=== PATIENT | female | born 1985 | race Caucasian/White ===

== ENCOUNTER 2023-01-24 11:26 | Outpatient (CLI) | payer OTHER, SELFPAY | END 2023-01-24 11:27 | disposition home or self-care (01) | PROVIDERS: PCP Internal Medicine; Visit Provider Obstetrics & Gynecology | DX: N91.2 Amenorrhea, unspecified (principal); N89.8 Other specified noninflammatory disorders of vagina | CPT/HCPCS: 83001; 84443; 87086 ==

== ENCOUNTER 2023-02-05 14:04 | Outpatient (CLI) | payer OTHER, SELFPAY ==
[2023-02-08] LABS: Bacterial Vaginosis by TMA Negative; Candida glabrata by TMA Negative; Candida species by TMA Negative; Trichomonas vaginalis by TMA Negative
== END 2023-02-05 14:05 | disposition home or self-care (01) ==
PROVIDERS: PCP Internal Medicine; Visit Provider Registered Nurse
DX: N89.8 Other specified noninflammatory disorders of vagina (principal)
CPT/HCPCS: 81513; 87109; 87481; 87491; 87591; 87661

== ENCOUNTER 2023-03-05 14:48 | Outpatient (CLI) | payer OTHER, SELFPAY ==
--- NOTE | 2023-03-05 15:00 | CRLHL7_ITS ---
For Patients: As a result of the Century Cures Act, medical imaging exams and procedure reports are released immediately into your electronic medical record. You may view this report before your referring provider. If you have questions, please contact your health care provider. INDICATION: Inflammation COMPARISON: 06/01/2021 TECHNIQUE: 2D padron scale and color Doppler images were acquired of the pelvis using a transabdominal and transvaginal approach. FINDINGS: Sonographic images demonstrate a normal size and smooth outer contour of the uterus. Uterus measures 6.7 cm in length by 3.0 cm in AP diameter by 4.3 cm in transverse dimension. The myometrium has a normal uniform echotexture. Intrauterine device is located within the endometrial canal in good position. The right ovary measures 2.3 x 1.0 x 2.3 cm in size and the left ovary measures 3.0 x 1.2 x 1.8 cm. The ovaries demonstrate normal arterial and venous blood flow on color Doppler analysis. There are no suspicious fluid collections within the cul-de-sac. IMPRESSION: Good position of the IUD. No uterine fibroid. No adnexal mass. Ovaries normal. Dictated by Josias Richards MD @ 03/05/2023 3:43:56 PM (Electronically Signed)
== END 2023-03-05 14:49 | disposition home or self-care (01) ==
LOC: US 14:48
PROVIDERS: PCP Internal Medicine; Visit Provider Registered Nurse
DX: N89.8 Other specified noninflammatory disorders of vagina (principal)
CPT/HCPCS: 76830; 76856

== ENCOUNTER 2023-04-09 14:30 | Outpatient (RCR) | payer OTHER, SELFPAY | END 2023-06-27 14:35 | disposition home or self-care (01) | PROVIDERS: PCP Internal Medicine; Visit Provider Family Medicine | DX: M54.50 Low back pain, unspecified (principal); M79.18 Myalgia, other site; G89.29 Other chronic pain; Z51.89 Encounter for other specified aftercare | CPT/HCPCS: 97110; 97161 ==

== ENCOUNTER 2023-04-25 13:53 | Outpatient (CLI) | payer OTHER, SELFPAY | END 2023-04-25 13:54 | disposition home or self-care (01) | PROVIDERS: PCP Family Medicine; Visit Provider Family Medicine | DX: R53.83 Other fatigue (principal); K52.9 Noninfective gastroenteritis and colitis, unspecified; R19.7 Diarrhea, unspecified | CPT/HCPCS: 80053; 83516; 84443 ==

== ENCOUNTER 2023-06-25 14:42 | Outpatient (CLI) | payer OTHER, SELFPAY | END 2023-06-25 14:43 | disposition home or self-care (01) | PROVIDERS: PCP Family Medicine; Visit Provider Registered Nurse | DX: N91.1 Secondary amenorrhea (principal) | CPT/HCPCS: 82670; 83001; 84146; 84443 ==

== ENCOUNTER 2023-07-08 08:10 | Outpatient (CLI) | payer OTHER, SELFPAY ==
--- OUTSIDE RECORDS SUMMARY | 2023-07-10 14:47 | XMS_ITS | Patient Health Record ---
Author Name Unknown Organization [facility] Address [address] [place] [phone] Care Team Providers Care Canine Service Teacher Name Role Phone Nikole Alvares Primary Care Provider ALLERGIES No Known Allergies RESULTS Component Value Reference Range Notes Thyroid Antibodies Reviewed date:07/10/2023 01:13:08 PM Interpretation:Normal Performing Lab:[facility], [facility], [address], [place], [address] Jose Davila Notes/Report: THYROGLOBULIN ANTIBODIES <1 < or = 1 IU/mL THYROID PEROXIDASE ANTIBODIES 4 <9 IU/mL T3, FREE Reviewed date:07/10/2023 07:14:49 AM Interpretation: Performing Lab:[facility], [facility], [address], [place], [address] Jose Davila Notes/Report: T3, FREE 3.5 2.3-4.2 pg/mL CRP C-REACTIVE PROTEIN Reviewed date:07/10/2023 01:12:06 PM Interpretation:4.8 Performing Lab:[facility], [facility], [address], [place], [address] Jose Davila Notes/Report: C-REACTIVE PROTEIN 4.8 <8.0 mg/L SED RATE BY MODIFIED DARYL PEREZ Reviewed date:07/10/2023 01:11:47 PM Interpretation:17 Performing Lab:[facility], [facility], [address], [place], [address] Jose Davila Notes/Report: SED RATE BY MODIFIED WESTERGREN 17 < OR = 20 mm/h T4, FREE Reviewed date:07/10/2023 07:17:43 AM Interpretation: Performing Lab:[facility], [facility], [address] [place] [address], [phone] Jose Davila Notes/Report: T4, FREE 1.1 0.8-1.8 ng/dL IMMUNOGLOBULINS Reviewed date:07/10/2023 01:12:31 PM Interpretation:Normal Performing Lab:[facility], [address] [place] [address], [place], [address] Jose Davila Notes/Report: IMMUNOGLOBULIN A 288 47-310 mg/dL IMMUNOGLOBULIN G 6240 868-4374 mg/dL IMMUNOGLOBULIN M 121 50-300 mg/dL VITAMIN D, 25-HYDROXY, LC/MS /MS(non-covered need waiver signed) Reviewed date:07/10/2023 01:12:49 PM Interpretation:67 Performing Lab:[facility], [address] [place] [address], [phone] Jose Davila Notes/Report: VITAMIN D,25-OH,TOTAL,IA 67 30-100 ng/mL Vitamin D Status 25-OH Vitamin D: Deficiency: <20 ng/mL Insufficiency: 20 - 29 ng/mL Optimal: > or = 30 ng/mL For 25-OH Vitamin D testing on patients on D2-supplementation and patients for whom quantitation of D2 and D3 fractions is required, the QuestAssureD(TM) 25-OH VIT D, (D2,D3), LC/MS/MS is recommended: order code 40018 (patients >2yrs). See Note 1 Note 1 For additional information, please refer to http://education.Cloud Takeoff.[employer]/faq/RJJ294 (This link is being provided for informational/ educational purposes only.) ANJANA Screen,IFA, with Reflex to Titer and Pattern Reviewed date:07/09/2023 11:29:52 AM Interpretation: Performing Lab:[facility], [facility], [facility], [place], [address] Jose Davila Notes/Report: ANJANA SCREEN, IFA NEGATIVE NEGATIVE ANJANA IFA is a first line screen for detecting the presence of up to approximately 150 autoantibodies in various autoimmune diseases. A negative ANJANA IFA result suggests an ANJANA-associated autoimmune disease is not present at this time, but is not definitive. If there is high clinical suspicion for Sjogren's syndrome, testing for anti-SS-A/Ro antibody should be considered. Anti-Mandi-1 antibody should be considered for clinically suspected inflammatory myopathies. AC-0: Negative International Consensus on ANJANA Patterns (https://doi.org/10.1515/cclm -1703-2785) For additional information, please refer to http://education.Magic Rock Entertainment/faq/UEM296 (This link is being provided for informational/ educational purposes only.) REASON FOR REFERRAL No Information MEDICATIONS Medication SIG (Take, Route, Frequency, Duration) Notes Start Date End Date Status Sertraline HCl 50 MG 1 tablet Orally Onc e a day Active Vitamin D 50 MCG (1999 UT) 1 tablet Oral ly Once a day 4000IU Active Clindamycin Phosphate 2 % as directed Vaginal Active SOCIAL HISTORY Tobacco Use: Social History Observation Description Date Details (start date - stop date) Never Smoker NA - NA Sex Assigned At : Social History Observation Description Sex Assigned At Unknown Smoking Question Answer Notes Status: Non-Smoker PROBLEMS Problem Type ICD Code Onset Dates Problem Status W/U Status Risk SNOMED Code Notes Problem Chronic vaginitis (N76.1) Active confirmed 04776008 VITAL SIGNS Heart Rate 52 /min 07/07/2023 Temperature 97.5 degrees Fahrenheit 07/07/2023 Respiratory Rate 14 /min 07/07/2023 Blood pressure diastolic 78 mm Hg 07/07/2023 Height 68 in 07/07/2023 Blood pressure systolic 106 mm Hg 07/07/2023 Weight 167.0 lbs 07/07/2023 BMI 25.39 kg/m2 07/07/2023 Encounters Encounter Location Date Provider Diagnosis [facility] [address] [place], [place] [id number] 05/14/2023 [facility] [address] [place], [place] [phone] 07/07/2023 Nikole Khan, [facility] [address] [place], [place] [phone] 07/07/2023 Nikole Alvares Elevated prolactin level R79.89 ; Recurrent URI (upper respiratory infection) J06.9 and Chronic vaginitis N76.1 ASSESSMENTS Encounter Date Diagnosis Assessment Notes Treatment Notes Treatment Clinical Notes 07/07/2023 Recurrent URI (upper respiratory infection) (ICD-10 - J06.9) 07/07/2023 Elevated prolactin level (ICD-10 - R79.89) Total time spent caring for the patient today was 45 minutes. This includes time spent before the visit reviewing the chart, time spent during the visit, and time spent after the visit on documentation. 07/07/2023 Chronic vaginitis (ICD-10 - N76.1) Probiotic 20 (Ultrabiotic by Orthomolecular) 1 by mouth daily. Probiotic Women's (Ultra Biotic Women's by Orthomolecular) 1 by mouth daily, and you can add 1 vaginally during times of vaginal symptoms. You can order supplements to be delivered to your home with a 10% discount through our account at the following website: [email or web address] PLAN OF TREATMENT No Information Insurance Providers Payer Name Payer Address Payer Phone Subscriber Number Group Number Insured Name Patient Relationship to Insured Coverage Start Date Coverage End Date PreferredOn e - PPO [address] [place] [phone] [id number] Daniela Lowery Self - patient is the insured MEDICAL (GENERAL) HISTORY Medical History History ICD Code Desquamative Inflammatory Vaginitis Back Pain Blepharitis Elevated Prolactin Amenorrhea
== END 2023-07-08 08:11 | disposition home or self-care (01) ==
LOC: NFLDREF 07-10 14:45
PROVIDERS: PCP Family Medicine; Referring Provider Family Medicine; Visit Provider Family Medicine
DX: N91.1 Secondary amenorrhea (principal)
CPT/HCPCS: 84146

== ENCOUNTER 2023-07-23 12:47 | Outpatient (CLI) | payer OTHER, SELFPAY ==
--- OUTSIDE RECORDS SUMMARY | 2023-07-23 12:50 | XMS_ITS | Patient Health Record ---
Author Name Unknown Organization [facility] Address [address] [place] [phone] Care Team Providers Care Ore Sampler Name Role Phone Nikole Alvares Primary Care Provider [phone] ALLERGIES No Known Allergies RESULTS Component Value Reference Range Notes Thyroid Antibodies Reviewed date:07/10/2023 01:13:08 PM Interpretation:Normal Performing Lab:[facility], [facility], [address], [place], [address] Jose Davila Notes/Report: THYROGLOBULIN ANTIBODIES <1 < or = 1 IU/mL THYROID PEROXIDASE ANTIBODIES 4 <9 IU/mL T3, FREE Reviewed date:07/10/2023 07:14:49 AM Interpretation: Performing Lab:[facility], [facility], [address], [place], [address] Jose Davila Notes/Report: T3, FREE 3.5 2.3-4.2 pg/mL CRP C-REACTIVE PROTEIN Reviewed date:07/10/2023 01:12:06 PM Interpretation:4.8 Performing Lab:[facility], [facility], [address], [place], [address] Jose Davila Notes/Report: C-REACTIVE PROTEIN 4.8 <8.0 mg/L SED RATE BY MODIFIED DARYL PEREZ Reviewed date:07/10/2023 01:11:47 PM Interpretation:17 Performing Lab:[facility], [facility], [address], [place], [address] Jose Davila Notes/Report: SED RATE BY MODIFIED WESTERGREN 17 < OR = 20 mm/h T4, FREE Reviewed date:07/10/2023 07:17:43 AM Interpretation: Performing Lab:[facility], [facility] [place], [address] [place] [address], [address] Jose Davila Notes/Report: T4, FREE 1.1 0.8-1.8 ng/dL IMMUNOGLOBULINS Reviewed date:07/10/2023 01:12:31 PM Interpretation:Normal Performing Lab:[facility], [facility], [address] [place] [address], [place], [address] Jose Davila Notes/Report: IMMUNOGLOBULIN A 288 47-310 mg/dL IMMUNOGLOBULIN G 4782 362-3618 mg/dL IMMUNOGLOBULIN M 121 50-300 mg/dL VITAMIN D, 25-HYDROXY, LC/MS /MS(non-covered need waiver signed) Reviewed date:07/10/2023 01:12:49 PM Interpretation:67 Performing Lab:[facility], [address] [place] [address], [phone] Jose Davila Notes/Report: VITAMIN D,25-OH,TOTAL,IA 67 30-100 ng/mL Vitamin D Status 25-OH Vitamin D: Deficiency: <20 ng/mL Insufficiency: 20 - 29 ng/mL Optimal: > or = 30 ng/mL For 25-OH Vitamin D testing on patients on D2-supplementation and patients for whom quantitation of D2 and D3 fractions is required, the QuestAssureD(TM) 25-OH VIT D, (D2,D3), LC/MS/MS is recommended: order code 03930 (patients >2yrs). See Note 1 Note 1 For additional information, please refer to http://education.Rakuten.anywayanyday/faq/GWS107 (This link is being provided for informational/ educational purposes only.) ANJANA Screen,IFA, with Reflex to Titer and Pattern Reviewed date:07/09/2023 11:29:52 AM Interpretation: Performing Lab:[facility], [facility], [facility], [place], [address] Jose Davila Notes/Report: ANJANA SCREEN, IFA NEGATIVE [...] Negative International Consensus on ANJANA Patterns (https://doi.org/10.1515/cclm -8285-1954) For additional information, please refer to http://education.ExtraFootie/faq/EXS194 (This link is being provided for informational/ [...] Notes Problem Chronic vaginitis (N76.1) Active confirmed [id number] VITAL SIGNS Heart Rate 52 /min 07/07/2023 Temperature 97.5 degrees Fahrenheit 07/07/2023 Respiratory Rate 14 /min 07/07/2023 Blood pressure diastolic 78 mm Hg 07/07/2023 Height 68 in 07/07/2023 Blood pressure systolic 106 mm Hg 07/07/2023 Weight 167.0 lbs 07/07/2023 BMI 25.39 kg/m2 07/07/2023 Encounters Encounter Location Date Provider Diagnosis [facility] [address] [place], [place] [phone] 05/14/2023 [facility] [address] [place], [place] [id number] 07/07/2023 Nikole Khan, [facility] [address] [place], [place] [phone] 07/07/2023 Nikole Alvares Elevated prolactin level R79.89 [...] through our account at the following website: [email or web address] PLAN OF TREATMENT No Information Insurance Providers Payer Name Payer Address Payer Phone Subscriber Number Group Number Insured Name Patient Relationship to Insured Coverage Start Date Coverage End Date PreferredOn e - PPO [address] [place] [phone] [id number] Daniela Lowery Self - patient is the insured MEDICAL (GENERAL) HISTORY Medical History History ICD Code Desquamative Inflammatory Vaginitis Back Pain Blepharitis Elevated Prolactin Amenorrhea
--- NOTE | 2023-07-23 13:00 | CRLHL7_ITS ---
For Patients: As a result of the Cures Act, medical imaging exams and procedure reports are released immediately into your electronic medical record. You may view this report before your referring provider. If you have questions, please contact your health care provider. INDICATION: Elevated prolactin. Comparison none. TECHNIQUE: Multiplanar T1, T2, FLAIR and diffusion-weighted imaging. Post gadolinium T1 weighted sequences. Additional pre and post and sequences of the sella. FINDINGS: Normal brain parenchymal morphology and signal intensity. No intracranial hemorrhage. No abnormal ventricular dilatation. Intracranial vascular flow voids are preserved. No mass effect. No midline shift. No restricted diffusion to suggest acute ischemia. No abnormal enhancement or enhancing lesions. Incidental tiny developmental venous anomaly of the right cerebellum. Dedicated sequences of the sella demonstrates a hypo enhancing nodule within the central and right aspect of the pituitary gland measuring approximately 7 x 5 mm (series 9, image 10). Finding is consistent with a pituitary adenoma. No suprasellar mass. Normal thickness of the infundibulum. Normal cavernous sinuses bilaterally. Bilateral orbits are unremarkable. Mild mucosal thickening within the paranasal sinuses. Opacification of the ethmoid air cells. Mastoid air cells are unremarkable. IMPRESSION: 1. No acute intracranial abnormality. 2. Normal brain parenchymal morphology and signal intensity. 3. No abnormal enhancement or enhancing lesions. 4. Dedicated sequences of the sella demonstrates a 7 millimeter hypo enhancing nodule within the central and right aspect of the pituitary gland. Findings consistent with a pituitary adenoma. 5. Mild sinus disease Dictated by Deandre Casas MD @ 07/24/2023 2:37:13 PM (Electronically Signed)
== END 2023-07-23 12:48 | disposition home or self-care (01) ==
LOC: MRI 12:48
PROVIDERS: PCP Family Medicine; Visit Provider Registered Nurse
DX: R79.89 Other specified abnormal findings of blood chemistry (principal); E23.7 Disorder of pituitary gland, unspecified; J34.9 Unspecified disorder of nose and nasal sinuses
CPT/HCPCS: 70553; A9575

== ENCOUNTER 2023-10-01 09:42 | Outpatient (REF) | payer OTHER, SELFPAY ==
[2023-10-03 04:10] LABS: Prolactin 9.9 ng/mL (2.8-29.2)
[2023-10-03 04:35] LABS: Adrenocorticotropic Hormone 8.6 pg/mL (7.2-63.3)
[2023-10-03 05:47] LABS: Cortisol, Serum 5.1 ug/dL
== END 2023-10-01 09:43 | disposition home or self-care (01) ==
LOC: NPINS 09:42
PROVIDERS: PCP Family Medicine; Visit Provider Internal Medicine Endocrinology, Diabetes & Metabolism
DX: E23.7 Disorder of pituitary gland, unspecified (principal)
CPT/HCPCS: 82024; 82533; 84146

== ENCOUNTER 2023-12-10 18:41 | Outpatient (CLI) | payer OTHER, SELFPAY ==
--- OUTSIDE RECORDS SUMMARY | 2023-12-10 18:43 | XMS_ITS | Encounter Summary ---
Author Name Unknown Organization [facility] Address [address] [place] [address]. [place] [address] Care Team Providers Care Interactive Project Manager Name Role Phone Giovanni Torre MD Unavailable [phone] Deana Silverio MD Primary Care Provider + Reason for Visit * Reason Onset Date Comments Referral 08/05/2023 Benign neoplasm of pituitary gland , scheduled first avail Encounter Details Date Type Department Care Team (Late st Contact Info) Description 08/05/2023 Telephone [facility] [address] [place] [address] Unknown Referral (Benign neoplasm of pituitary gland , scheduled first avail) Social History Tobacco Use Types Packs/Day Years Used Date Smoking Tobacco: Never Assessed Adolescent Education Answer Date Record ed Getting School Help Needed Not on file 08/01 Sex and Gender Information Value Date Recorded Sex Assigned at Not on file Gender Identity Not on file Sexual Orientation Not on file documented as of this encounter Miscellaneous Notes * Telephone Encounter - Helena Miguel MD - 08/05/2023 8:09 PM BELT REPAIRER To schedulers : please offer to move forward on schedule with either Dr Camarena, Marquis Ashford Ruanpeng, Trost, Salim, Herrera, Araki, Moheet, Bantle using NON-CALL week open new/KEILA (60 minutes) or 2 back to back 30 minute KEILA spaces. Helena Miguel MD Endocrine triage REPAIRER * Telephone Encounter - Gabi Ferrera - 08/05/2023 9:11 AM CST Pended for triage. Lucy Parker RN on 08/05/2023 at 11:29 AM [facility] Phone Message May a detailed message be left on voicemail: yes Reason for Call: Appointment Intake Referring Provider Name: BRENNA PARISH Diagnosis and/or Symptoms: Benign neoplasm of pituitary gland , scheduled first avail, 04/07/24- (pituitary tumor dx protocols show 1 week for schedule) please review Action Taken: Message routed to: [facility] endocrinology Travel Screening: Not Applicable REPAIRER documented in this encounter Plan of Treatment Not on file documented as of this encounter Visit Diagnoses Not on filedocumented in this encounter Care Teams Interactive Project Manager Relationship Specialty Start Date End Date Deana Silverio MD [facility] [address] [address] PCP - General Family Medicine 08/05/23 Giovanni Torre MD Endocrinology, Diabetes, and Metabolism 08/05/23 documented as of this encounter
--- OUTSIDE RECORDS SUMMARY | 2023-12-10 18:43 | XMS_ITS | Encounter Summary ---
Author Name Unknown Organization [facility] Address [address] [place] [address]. [place] [address] Care Team Providers Care Returned Goods Receiving Clerk Name Role Phone Giovanni Torre MD Unavailable Denaa Silverio MD Primary Care Provider + Encounter Details Date Type Department Care Team (Late st Contact Info) Description 10/05/2022 Medical Correspondence [facility] [address] [place] [phone] Scan, Non-Provider Social History Tobacco Use Types Packs/Day Years Used Date Smoking Tobacco: Never Assessed Adolescent Education Answer Date Record ed Getting School Help Needed Not on file 08/01 Sex and Gender Information Value Date Recorded Sex Assigned at Not on file Gender Identity Not on file Sexual Orientation Not on file documented as of this encounter Plan of Treatment Not on file documented as of this encounter Visit Diagnoses Not on filedocumented in this encounter Care Teams Returned Goods Receiving Clerk Relationship Specialty Start Date End Date Deana Silverio MD [facility] [address] [place] [address] PCP - General Family Medicine 08/05/23 Giovanni Torre MD Endocrinology, Diabetes, and Metabolism 08/05/23 documented as of this encounter
--- OUTSIDE RECORDS SUMMARY | 2023-12-10 18:43 | XMS_ITS | Encounter Summary ---
Author Name Unknown Organization [facility] Address [address] [place] [address]. [place] [address] Care Team Providers Care Services Advisor Name Role Phone Giovanni Torre MD Unavailable [phone] Deana Silverio MD Primary Care Provider + Reason for Visit * Reason Comments ACTH Test * Treatment and Therapy Plans (Routine) - Authorized Specialty Diagnoses / Procedures Referred By Contac t Referred To Contact Diagnoses Low serum cortisol level Procedures ZZC COSYNTROPIN INJ, .25MG Nilson Whittington [facility] [address] [facility] [place] [address] [place] [address] [facility] [place] [address] Referral ID Status Reason Start Date Expiration Date V isits Requested Visits Authorized [id number] Authorized 10/14/2023 08/03/2024 99 99 Encounter Details Date Type Department Care Team (Latest Contact Info) Description 10/21/2023 8:00 AM CDT Infusion Therapy Visit [facility] [id number] [place] [address] [address] [place] [address] Caitlin Bateman MD [facility] [address] [facility] [address] [place]GUIN [id number] Low serum cortisol level (Primary Dx) Social History Tobacco Use Types Packs/Day Years Used Date Smoking Tobacco: Never Assessed Adolescent Education Answer Date Record ed Getting School Help Needed Not on file 08/01 Sex and Gender Information Value Date Recorded Sex Assigned at Not on file Gender Identity Not on file Sexual Orientation Not on file documented as of this encounter Last Filed Vital Signs Vital Sign Reading Time Taken Comments Blood Pressure 106/69 10/21/2023 8:09 AM CDT Pulse 60 10/21/2023 8:09 AM CDT Temperature 37.3 ??C (99.1 ??F) 10/21/2023 8:09 AM CD T Respiratory Rate - - Oxygen Saturation 98% 10/21/2023 8:09 AM CDT Inhaled Oxygen Concentration - - Weight - - Height - - Body Mass Index - - documented in this encounter Progress Notes * Ni Dobson RN - 10/21/2023 8:00 AM CDT Infusion Nursing Note: Daniela Lorenz Sebastián presents today for ACTH Test. Patient seen by provider today: No Radio Time Sales Supervisor present during visit today: Not Applicable. Note: N/A. Intravenous Access: Labs drawn without difficulty. Peripheral IV placed. Treatment Conditions: Not Applicable. Post Infusion Assessment: Patient tolerated infusion without incident. Blood return noted pre and post infusion. Site patent and intact, free from redness, edema or discomfort. No evidence of extravasations. Access discontinued per protocol. Discharge Plan: Discharge instructions reviewed with: Patient. Patient and/or family verbalized understanding of discharge instructions and all questions answered. AVS to patient via MYCHART. Patient discharged in stable condition accompanied by: self. Departure Mode: Ambulatory. Ni Dobson RN * Nilson Whittington RPH - 10/21/2023 8:00 AM CDT Images from the original note were not included. Copy of original order documented in this encounter Plan of Treatment Not on file documented as of this encounter Procedures Procedure Name Priority Date/Time Associated Diagnosis Comments COSYNTROPIN STIMULATION STUDY POST 60 Timed 10/21/2023 9:34 AM CDT Low serum cortisol level COSYNTROPIN STIMULATION STUDY POST 30 Timed 10/21/2023 9:04 AM CDT Low serum cortisol level ELECTROLYTE PANEL Routine 10/21/2023 8:2 0 AM CDT Low serum cortisol level ДМИТРИЙ STIM BASELINE Routine 10/21/2023 8: 20 AM CDT Low serum cortisol level ADRENAL CORTICOTROPIN Routine 10/21/2023 8:20 AM CDT Low serum cortisol level documented in this encounter Results * Cosyntropin stimulation study post 60 (10/21/2023 9:34 AM CDT) Cortisol 60 min Post-dose 28.0 >20.0 ug/dL 10/21/2023 5:06 PM CDT [facility] Comment:Peak serum cortisol should be greater than 20 ug/dL 30-60 minutes post stimulation. Time of Cosyntropin Injection 10/21/23 0833 10/21/2023 5:06 PM CDT [facility] Blood STRUCTURE OF RIGHT UPPER LIMB / Unknown Venipuncture / Unknown 10/21/2023 9:34 AM CDT 10/21/2023 9:52 AM CDT Caitlin Frazier MD LAB - BLOOD ORDERABL ES [facility] Core Lab [address] [facility], [address] [place] [address], [facility] RH LABORATORY [facility] Acute Care Lab [address] Lab (1st floor, no room number) [place] [address], [facility] * Cosyntropin stimulation study post 30 (10/21/2023 9:04 AM CDT) Cortisol 30 min Post-dose 22.5 >20.0 ug/dL 10/21/2023 3:30 PM CDT [facility] Comment:Peak serum cortisol should be greater than 20 ug/dL 30-60 minutes post stimulation. Blood STRUCTURE OF RIGHT UPPER LIMB / Unknown Venipuncture / Unknown 10/21/2023 9:04 AM CDT 10/21/2023 9:10 AM CDT Caitlin Frazier MD LAB - BLOOD ORDERABL ES Performing Organization Address [facility] de Phone Number LABORATORY [facility] [place] Core Lab [address] [facility] [place], [address] [phone] * Cosyntropin stimulation study baseline (10/21/2023 8:20 AM CDT) Cortisol Baseline 6.1 4.0 - 22.0 ug/dL 10/21/2023 3:13 PM CDT U LAB[facility]ATORY Comment: 6 to 10 AM Cortisol Reference Range = 4-22 ug/dL 4 to 8 PM Cortisol Reference Range = 3-17 ug/dL Blood STRUCTURE OF RIGHT UPPER LIMB / Unknown Venipuncture / Unknown 10/21/2023 8:20 AM CDT 10/21/2023 8:30 AM CDT Caitlin Frazier MD LAB - BLOOD ORDERABL ES Performing Organization Address [facility] de Phone Number LABORATORY [facility] [place] Core Lab [address] [facility] [place] [place], [address] [phone] * Electrolyte panel (10/21/2023 8:20 AM CDT) Sodium 136 135 - 145 mmol/L 10/21/2023 9:05 AM CDT LABORATORY Comment:Reference intervals for this test were updated on 04/29/2023 to more accurately reflect our healthy population. There may be differences in the flagging of prior results with similar values performed with this method. Interpretation of those prior results can be made in the context of the updated reference intervals. Potassium 4.5 3.4 - 5.3 mmol/L 10/21/2023 9:05 AM CDT LABORATORY Chloride 105 98 - 107 mmol/L 10/21/2023 9:05 AM CDT LABORATORY Carbon Dioxide (CO2) 23 22 - 29 mmol/L 10/21/2023 9:05 AM CDT [facility] Anion Gap 8 7 - 15 mmol/L 10/21/2023 9:05 AM CDT [facility] Blood STRUCTURE OF RIGHT UPPER LIMB / Unknown Venipuncture / Unknown 10/21/2023 8:20 AM CDT 10/21/2023 8:30 AM CDT Caitlin Frazier MD LAB - BLOOD ORDERABL ES [facility] LABORATORY [facility] Acute Care Lab [address] Lab (1st floor, no room number) [place] [address], [facility] * Adrenal corticotropin (10/21/2023 8:20 AM CDT) Adrenal Corticotropin <10 <47 pg/mL 10/22/2023 12:41 PM CDT [facility]/PROT/END O Blood STRUCTURE OF RIGHT UPPER LIMB / Unknown Venipuncture / Unknown 10/21/2023 8:20 AM CDT 10/21/2023 8:30 AM CDT Caitlin Frazier MD LAB - BLOOD ORDERABL ES [facility]/PROT/ENDO [facility] Core/Prot/Endo [address] [facility], Room [address] documented in this encounter Visit Diagnoses Diagnosis 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 Administer Cosyntropin after baseline labs are drawn $Given 10/21/2023 8:31 AM CDT 250 mcg documented in this encounter Care Teams Services Advisor Relationship Specialty Start Date End Date Deana Silverio MD [facility] & [address] [address] PCP - General Family Medicine 08/05/23 Giovanni Torre MD Endocrinology, Diabetes, and Metabolism 08/05/23 documented as of this encounter
--- OUTSIDE RECORDS SUMMARY | 2023-12-10 18:43 | XMS_ITS | Patient Health Record ---
Author Name Unknown Organization [facility] Address [address] [place] [id number] Care Team Providers Care Delinquent Account Clerk Name Role Phone Nikole Smith Primary Care Provider Allergies No Known Allergies Results Component Value Reference Range Notes Thyroid Antibodies Reviewed date:07/10/2023 01:13:08 PM Interpretation:Normal Performing Lab:[facility], [facility], [address], [place], [address] Jose Davila Notes/Report: THYROGLOBULIN ANTIBODIES <1 < or = 1 IU/mL THYROID PEROXIDASE ANTIBODIES 4 <9 IU/mL T3, FREE Reviewed date:07/10/2023 07:14:49 AM Interpretation: Performing Lab:[facility], [facility], [address], [place], [address] Jose Davila Notes/Report: T3, FREE 3.5 2.3-4.2 pg/mL CRP C-REACTIVE PROTEIN Reviewed date:07/10/2023 01:12:06 PM Interpretation:4.8 Performing Lab:[facility], [facility], [address], [place], [address] Jose Davila Notes/Report: C-REACTIVE PROTEIN 4.8 <8.0 mg/L SED RATE BY MODIFIED DARYL PEREZ Reviewed date:07/10/2023 01:11:47 PM Interpretation:17 Performing Lab:[facility], [facility], [address], [place], [address] Jose Davila Notes/Report: SED RATE BY MODIFIED WESTERGREN 17 < OR = 20 mm/h T4, FREE Reviewed date:07/10/2023 07:17:43 AM Interpretation: Performing Lab:[facility], [address] [place] [address], [address] Jose Davila Notes/Report: T4, FREE 1.1 0.8-1.8 ng/dL IMMUNOGLOBULINS Reviewed date:07/10/2023 01:12:31 PM Interpretation:Normal Performing Lab:[facility], [address] [place] [address], [place], [address] Jose Davila Notes/Report: IMMUNOGLOBULIN A 288 47-310 mg/dL IMMUNOGLOBULIN G 3215 941-3775 mg/dL IMMUNOGLOBULIN M 121 50-300 mg/dL VITAMIN D, 25-HYDROXY, LC/MS /MS(non-covered need waiver signed) Reviewed date:07/10/2023 01:12:49 PM Interpretation:67 Performing Lab:[facility], [address] [place] [address], [address] Jose Dvaila Notes/Report: VITAMIN D,25-OH,TOTAL,IA 67 30-100 ng/mL Vitamin D Status 25-OH Vitamin D: Deficiency: <20 ng/mL Insufficiency: 20 - 29 ng/mL Optimal: > or = 30 ng/mL For 25-OH Vitamin D testing on patients on D2-supplementation and patients for whom quantitation of D2 and D3 fractions is required, the QuestAssureD(TM) 25-OH VIT D, (D2,D3), LC/MS/MS is recommended: order code 85149 (patients >2yrs). See Note 1 Note 1 For additional information, please refer to http://education.[employer]Port ([place]).FABPulous/faq/XQG817 (This link is being provided for informational/ educational purposes only.) ANJANA Screen,IFA, with Reflex to Titer and Pattern Reviewed date:07/09/2023 11:29:52 AM Interpretation: Performing Lab:[facility], [address] [facility], [place], [address] Jose Davila Notes/Report: ANJANA SCREEN, IFA NEGATIVE [...] Negative International Consensus on ANJANA Patterns (https://doi.org/10.1515/cclm -0111-8788) For additional information, please refer to http://education.[employer]).FABPulous/faq/XKI432 (This link is being provided for informational/ educational purposes only.) Reason For Referral No Information Medications Medication SIG (Take, Route, Frequency, Duration) Notes Start Date End Date Status Sertraline HCl 50 MG 1 tablet Orally Onc e a day Active Vitamin D 50 MCG (2000 UT) 1 tablet Oral ly Once a day 4000IU Active Clindamycin Phosphate 2 % as directed Vaginal Active Social History Tobacco Use: Social History Observation Description Date Details (start date - stop date) Never Smoker NA - NA Smoking Question Answer Notes Status: Non-Smoker Problems Problem Type SNOMED Code ICD Code Onset Dates Problem Status W/U Status Risk Notes Problem 67188647 Chronic vaginitis (N76.1) Active confirmed Vital Signs Heart Rate 52 /min 07/07/2023 Temperature 97.5 degrees Fahrenheit 07/07/2023 Respiratory Rate 14 /min 07/07/2023 Blood pressure diastolic 78 mm Hg 07/07/2023 Height 68 in 07/07/2023 Blood pressure systolic 106 mm Hg 07/07/2023 Weight 167.0 lbs 07/07/2023 BMI 25.39 kg/m2 07/07/2023 Encounters Encounter Location Date Provider Diagnosis [facility] [address] [place], [place] [phone] 07/07/2023 Nikole Varner Elevated prolactin level R79.89 ; Recurrent URI (upper respiratory infection) J06.9 and Chronic vaginitis N76.1 [facility] [address] [place], [place] [phone] 05/14/2023 [facility] [address] [place], [place] [phone] 07/07/2023 [facility] [address] [place], [place] [phone] 08/29/2023 [facility] [address] [place], [place] [phone] 08/29/2023 Nikole Varner Assessments Encounter Date Diagnosis (ICD Code) Assessment Notes Treatment Notes Treatment Clinical Notes [...] through our account at the following website: [email or web address] Plan Of Treatment No Information Insurance Providers Payer Name Payer Address Payer Phone Subscriber Number Group Number Insured Name Patient Relationship to Insured Coverage Start Date Coverage End Date PreferredOn e - PPO [address] [place] [phone] [id number] Daniela Lowery Self - patient is the insured Medical (General) History Medical History History ICD Code Desquamative Inflammatory Vaginitis Back Pain Blepharitis Elevated Prolactin Amenorrhea
--- OUTSIDE RECORDS SUMMARY | 2023-12-10 18:43 | XMS_ITS | Referral Summary ---
Author Name Unknown Organization [facility] Address [address] [place] [address] Care Team Providers Care Tarring Machine Operator Name Role Phone Giovanni Torre MD Unavailable [phone] Deana Silverio MD Primary Care Provider + Encounters Date Type Department Care Team Description 10/21/2023 Travel 10/21/2023 8:00 AM CDT Infusion Therapy Visit [facility] [address] [place] [address] Caitlin Bateman MD Low serum cortisol level (Primary Dx) 10/14/2023 Orders Only [address] [facility] [place] [phone] Nilson Whittington RPH Low serum cortisol level (Primary Dx) from Last 3 Months Allergies No known active allergies Medications Medication Sig Dispensed Refills Start Date End Date Status sertraline (ZOLOFT) 50 MG tablet Take 50 mg by mouth daily Active Cholecalciferol 100 MCG (4000 UT) CAPS Take 4,000 mg by mouth daily Active cabergoline (DOSTINEX) 0.5 MG tablet Take 0.25 mg by mouth twice a week Takes Tuesdays and Fridays Active Active Problems Problem Noted Date Diagnosed Date Low serum cortisol level 10/14/2023 Social History Tobacco Use Types Packs/Day Years Used Date Smoking Tobacco: Never Assessed Adolescent Education Answer Date Record ed Getting School Help Needed Not on file 08/01 Sex and Gender Information Value Date Recorded Sex Assigned at Not on file Gender Identity Not on file Sexual Orientation Not on file Last Filed Vital Signs Vital Sign Reading Time Taken Comments Blood Pressure 106/69 10/21/2023 8:09 AM CDT Pulse 60 10/21/2023 8:09 AM CDT Temperature 37.3 ??C (99.1 ??F) 10/21/2023 8:09 AM CD T Respiratory Rate - - Oxygen Saturation 98% 10/21/2023 8:09 AM CDT Inhaled Oxygen Concentration - - Weight - - Height - - Body Mass Index - - Plan of Treatment Not on file Procedures Procedure Name Priority Date/Time Associated Diagnosis Comments COSYNTROPIN STIMULATION STUDY POST 60 Timed 10/21/2023 9:34 AM CDT Low serum cortisol level COSYNTROPIN STIMULATION STUDY POST 30 Timed 10/21/2023 9:04 AM CDT Low serum cortisol level ДМИТРИЙ STIM BASELINE Routine 10/21/2023 8: 20 AM CDT Low serum cortisol level ELECTROLYTE PANEL Routine 10/21/2023 8:2 0 AM CDT Low serum cortisol level ADRENAL CORTICOTROPIN Routine 10/21/2023 8:20 AM CDT Low serum cortisol level from Last 3 Months Results * Cosyntropin stimulation study post 60 [...] LAB - BLOOD ORDERABL ES [facility] Opp Core Lab 500 [facility], Room [address] [place] [phone] RH LABORATORY [facility] Acute Care Lab [address] [facility] Lab (1st floor, no room number) [place] [address] * Cosyntropin stimulation study post 30 [...] LAB - BLOOD ORDERABL ES [facility] Opp Core Lab 500 [facility], [address] [address] * Electrolyte panel (10/21/2023 8:20 AM CDT) Sodium 136 135 - 145 mmol/L 10/21/2023 9:05 AM CDT [facility] Comment:Reference intervals for this test were updated on 04/29/2023 to more accurately reflect our healthy population. There may be differences in the flagging of prior results with similar values performed with this method. Interpretation of those prior results can be made in the context of the updated reference intervals. Potassium 4.5 3.4 - 5.3 mmol/L 10/21/2023 9:05 AM CDT [facility] Chloride 105 98 - 107 mmol/L 10/21/2023 9:05 AM CDT [facility] Carbon Dioxide (CO2) 23 22 - 29 mmol/L 10/21/2023 9:05 AM CDT [facility] Anion Gap 8 7 - 15 mmol/L 10/21/2023 9:05 AM CDT [facility] Blood STRUCTURE OF RIGHT UPPER LIMB / Unknown Venipuncture / Unknown 10/21/2023 8:20 AM CDT 10/21/2023 8:30 AM CDT Caitlin Frazier MD LAB - BLOOD ORDERABL ES LABORATORY [facility] Acute Care Lab [address] Lab (1st floor, no room number) [place] [address], [facility] * Cosyntropin stimulation study baseline (10/21/2023 8:20 AM CDT) Cortisol Baseline 6.1 4.0 - 22.0 ug/dL 10/21/2023 3:13 PM CDT [facility] Comment: 6 to 10 AM Cortisol Reference Range = 4-22 ug/dL 4 to 8 PM Cortisol Reference Range = 3-17 ug/dL Blood STRUCTURE OF RIGHT UPPER LIMB / Unknown Venipuncture / Unknown 10/21/2023 8:20 AM CDT 10/21/2023 8:30 AM CDT Caitlin Frazier MD LAB - BLOOD ORDERABL ES [facility] Opp Core Lab 500 [facility], Room [address] * Adrenal corticotropin (10/21/2023 8:20 AM CDT) Adrenal Corticotropin <10 <47 pg/mL 10/22/2023 12:41 PM CDT [facility]/PROT/END O Blood STRUCTURE OF RIGHT UPPER LIMB / Unknown Venipuncture / Unknown 10/21/2023 8:20 AM CDT 10/21/2023 8:30 AM CDT Caitlin Frazier MD LAB - BLOOD ORDERABL ES [facility]ORE/PROT/ENDO [facility] Core/Prot/Endo 500 [facility] Building, Room [address] [place] [address] from Last 3 Months Care Teams Tarring Machine Operator Relationship Specialty Start Date End Date Deana Silverio MD [facility] [address] [place] [address] PCP - General Family Medicine 08/05/23 Giovanni Torre MD Endocrinology, Diabetes, and Metabolism 08/05/23
--- OUTSIDE RECORDS SUMMARY | 2023-12-10 18:43 | XMS_ITS | Clinical Summary ---
Author Name Unknown Organization [facility] Address [address] [place] [address]. [place] [address] Care Team Providers Care Butadiene Compressor Operator Name Role Phone Giovanni Torre MD Unavailable [phone] Deana Silverio MD Primary Care Provider + Allergies No known active allergies Medications Medication [...] Diagnosed Date Low serum cortisol level 10/14/2023 Encounters Date Type Department Care Team Description 10/21/2023 8:00 AM CDT Infusion Therapy Visit [facility] [place] [address] [address] [place] [address] Caitlin Bateman MD Low serum cortisol level (Primary Dx) 10/21/2023 Travel 10/14/2023 Orders Only [facility] [address] [facility] [address] [facility] [place] [address] Nilson Whittington RPH Low serum cortisol level (Primary Dx) from Last 3 Months Social History Tobacco Use Types Packs/Day Years [...] Mass Index - - Plan of Treatment Health Maintenance Due Date Last Done Comments ADVANCE CARE PLANNING 1987 ANNUAL REVIEW OF HM ORDERS 1987 GLUCOSE 1987 YEARLY PREVENTIVE VISIT 1987 HIV SCREENING 2002 HEPATITIS C SCREENING 2005 HEPATITIS B IMMUNIZATION (1 of 3 - 19+ 3-dose series) 2006 PAP 2008 COVID-19 Vaccine () 04/04/2023 05/01/2022, 12/04/2021, 08/22/2020, Additional history exists PHQ-2 (once per calendar year) 2023 DTAP/TDAP/TD IMMUNIZATION (3 - Td or Tdap) 10/24/2031 10/23/2021, 12/15/2008 INFLUENZA VACCINE Completed 05/29/2023, , 05/29/2021, Additional history exists HPV IMMUNIZATION Aged Out No longer e ligible based on patient's age to complete this topic IPV IMMUNIZATION Aged Out No longer e ligible based on patient's age to complete this topic MENINGITIS IMMUNIZATION Aged Out No l onger eligible based on patient's age to complete this topic Pneumococcal Vaccine: Pediatrics (0 to 5 Years) and At-Risk Patients (6 to 64 Years) Aged Out No longer eligible based on patient's age to complete this topic RSV MONOCLONAL ANTIBODY Aged Out No l onger eligible based on patient's age to complete this topic Procedures Procedure Name Priority Date/Time Associated Diagnosis [...] LAB - BLOOD ORDERABL ES [facility] [place] Core Lab 500 [facility], Room [address] [place] [address] LABORATORY [facility] Acute Care Lab [address] Lab (1st floor, no room number) [place] [address] * Cosyntropin stimulation study post 30 (10/21/2023 9:04 AM CDT) Cortisol 30 min Post-dose 22.5 >20.0 ug/dL 10/21/2023 3:30 PM CDT [facility] Comment:Peak serum cortisol should be greater than 20 ug/dL 30-60 minutes post stimulation. Blood STRUCTURE OF RIGHT UPPER LIMB / Unknown Venipuncture / Unknown 10/21/2023 9:04 AM CDT 10/21/2023 9:10 AM CDT Caitlin Frazier MD LAB - BLOOD ORDERABL ES U LABORATORY [facility] [place] Core Lab 500 [facility], [address] [place] [address], [facility] * Electrolyte panel (10/21/2023 8:20 AM CDT) [...] - 29 mmol/L 10/21/2023 9:05 AM CDT LABORATORY Anion Gap 8 7 - 15 mmol/L 10/21/2023 9:05 AM CDT LABORATORY Blood STRUCTURE OF RIGHT UPPER LIMB / Unknown Venipuncture / Unknown 10/21/2023 8:20 AM CDT 10/21/2023 8:30 AM CDT Caitlin Frazier MD LAB - BLOOD ORDERABL ES LABORATORY [facility] Acute Care Lab [address] Lab (1st floor, no room number) [place] [address], [facility] * Cosyntropin stimulation study baseline (10/21/2023 [...] LAB - BLOOD ORDERABL ES [facility] [place] [facility] Lab 500 [facility] Unit [facility], Room [address] * Adrenal corticotropin (10/21/2023 8:20 AM CDT) Adrenal Corticotropin <10 <47 pg/mL 10/22/2023 12:41 PM CDT [facility] CORE/PROT/END O Blood STRUCTURE OF RIGHT UPPER LIMB / Unknown Venipuncture / Unknown 10/21/2023 8:20 AM CDT 10/21/2023 8:30 AM CDT Caitlin Frazier MD LAB - BLOOD ORDERABL ES [facility] CORE/PROT/ENDO [facility] Special[facility] Core/Prot/Endo 500 [facility], Room [address] from Last 3 Months Care Teams Butadiene Compressor Operator Relationship Specialty Start Date End Date Deana Silverio MD [facility] [address] [place] [address] PCP - General Family Medicine 08/05/23 Giovanni Torre MD Endocrinology, Diabetes, and Metabolism 08/05/23
--- OUTSIDE RECORDS SUMMARY | 2023-12-10 18:43 | XMS_ITS | Encounter Summary ---
Author Name Unknown Organization [place] Address Formerly [facility]0 [facility] [place] [address] Care Team Providers Care Motion Picture Scene Builder Name Role Phone Giovanni Torre MD Unavailable [phone] Deana Silverio MD Primary Care Provider + Encounter Details Date Type Department Care Team (Late st Contact Info) Description 10/14/2023 Orders Only [facility] [address] [place] [address] [facility] [place] [id number] Nilson Whitting[place], [facility] [address] [facility] [place] [address] Low serum cortisol level (Primary Dx) Social [...] documented as of this encounter Visit Diagnoses Diagnosis 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
--- OUTSIDE RECORDS SUMMARY | 2023-12-10 18:43 | XMS_ITS | Encounter Summary ---
Author Name Unknown Organization [place] Address [address] [place] [address]. [place] [address] Care Team Providers Care Pot Puncher Name Role Phone Giovanni Torre MD Unavailable [phone] Deana Silverio MD Primary Care Provider + Encounter Details Date Type Department Care Team (Latest Contact Info) Description 10/21/2023 Travel Social History Tobacco Use Types Packs/Day Years [...] on filedocumented in this encounter Care Teams Pot Puncher Relationship Specialty Start Date End Date Deana Silverio MD [facility] & [address] [address] PCP - General Family Medicine 08/05/23 Giovanni Torre MD Endocrinology, Diabetes, and Metabolism 08/05/23 documented as of this encounter
--- NOTE | 2023-12-10 19:00 | MR_ITS ---
[address] [address] Phone:?[phone] Fax:?[phone] Referring Physician Information: Caridad Babb [address] [facility] [address] Phone:?[phone] Fax:?[phone] Patient:?Daniela Lowery D.O.B:?1985 Sex:?Female Phone:?[phone] [facility] MRN:?[id number] Exam Date:?12/10/2023 EXAM: MRI of the LEFT KNEE, without contrast CLINICAL INFORMATION: Female, 38 years old, with left knee pain. INDICATION: Evaluate knee pain. PRIOR SURGERY: None reported. PLAIN FILMS: None available. COMPARISONS: No prior MRIs available. TECHNICAL INFORMATION: Using a 1.5T MR scanner and a localizing surface coil: sagittals: PD, PDFS coronals: PD, T2FS axials: PD, PDFS SEDATION: None CONTRAST: None FINDINGS: Knee joint: Effusion: Trace-small left knee effusion. Popliteal cyst: None. Loose bodies: None. Subcutaneous and extra-articular soft tissues: Unremarkable. Ligaments: ACL: Intact ACL anteromedial and posterolateral bundles, without sprain or tear. PCL: Intact PCL, without acute or chronic injury. MCL: Intact MCL superficial and deep layers, without injury. LCL: Intact LCL, without injury. Posterolateral corner: No posterolateral corner soft tissue injury. Popliteus, biceps femoris, iliotibial band, popliteofibular ligament and lateral gastrocnemius are intact. Posteromedial corner: No posteromedial corner soft tissue injury. Semimembranosus, pes anserine tendons and posterior oblique ligament are without injury, tendinopathy or bursitis. Extensor mechanism: Patellar tendon: Intact, without tendinopathy. Quadriceps tendon: Intact, without tendinopathy. Retinacula: Medial and lateral retinacula are intact. Fat pads: Mild-moderate localized edema is present in the superolateral Hoffa's fat pad (sagittal PDFS series 6 image 22 and axial T2FS series 4 image 13). Medial compartment: Medial meniscus: Intrasubstance degeneration is present at the posterior horn/body junction of the medial meniscus, but this signal does not extend to an articular surface and thus does not meet criteria for a tear. No extrusion or parameniscal cyst. Medial femoral condyle: No chondromalacia or osteochondral abnormality. Medial tibial plateau: No chondromalacia or osteochondral abnormality. Lateral compartment: Lateral meniscus: No articular surface, meniscosynovial junction or root tear. No displacement, extrusion or parameniscal cyst. Lateral femoral condyle: No chondromalacia or osteochondral abnormality. Lateral tibial plateau: No chondromalacia or osteochondral abnormality. Patellofemoral joint: Patella: Broad-based grade II chondromalacia of the medial facet and median ridge, with partial-thickness chondral fissuring (axial T2FS series 4 image 10 and sagittal PDFS series 6 image 17) Trochlea: No chondromalacia or osteochondral abnormality. Proximal tibiofibular joint: Unremarkable, without evidence of ligament sprain injury, joint effusion or adjacent marrow edema. Bones: Mild-moderate edema-like signal is present in the periphery of the medial femoral condyle, without fracture (sagittal PDFS series 6 image 9, axial T2FS series 4 image 18, and coronal STIR series 8 image 20). IMPRESSION: 1. Focal contusion versus low-grade stress changes involving the periphery of the medial femoral condyle, without fracture. 2. 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 3. Patellar tendon lateral femoral condyle friction syndrome. 4. Trace-small knee joint effusion. No popliteal (Jimenez's) cyst. 5. No cruciate or collateral ligament sprain/tear. 6. No lateral meniscal tear. 7. No osteochondral abnormality of the medial or lateral compartment. BC Electronically signed on 12/11/2023 11:59:00 AM by Cali Melgar M.D.
== END 2023-12-10 18:42 | disposition home or self-care (01) ==
PROVIDERS: PCP Family Medicine; Visit Provider Physician Assistant Surgical
DX: M25.562 Pain in left knee (principal); M22.42 Chondromalacia patellae, left knee; M25.462 Effusion, left knee
CPT/HCPCS: 73721

== ENCOUNTER 2024-01-05 17:00 | Outpatient (RCR) | payer OTHER, SELFPAY | END 2024-05-04 23:59 | disposition home or self-care (01) | PROVIDERS: PCP Family Medicine; Visit Provider Physician Assistant Surgical | DX: M23.307 Other meniscus derangements, unspecified meniscus, left knee (principal); M25.561 Pain in right knee; Z51.89 Encounter for other specified aftercare | CPT/HCPCS: 97110; 97161 ==

== ENCOUNTER 2025-07-12 11:18 | Outpatient (CLI) | payer OTHER, SELFPAY ==
--- NOTE | 2025-07-12 15:00 | CRLHL7_ITS ---
For Patients: As a result of the 21st Century Cures Act, medical imaging exams and procedure reports are released immediately into your electronic medical record. You may view this report before your referring provider. If you have questions, please contact your health care provider. INDICATION: Articular disorder of both temporomandibular joints TECHNIQUE: Temporal bone CT was performed without the administration of intravenous contrast. COMPARISON: : None. FINDINGS: RIGHT TEMPORAL BONE: The auricle and adjacent soft tissues are unremarkable. The external auditory canal is patent without stenosis or obstruction. The tympanic membrane is normal. No abnormal density in the middle ear cavity including the sinus tympani and facial recess. The ossicular chain is intact. The scutum is normal in morphology and Prussak`s space is clear. The mastoid air cells are clear. Focal areas of thinning/dehiscence involving the tegmen tympani and tegmen mastoideum. The otic capsule is normal in density. No abnormality of the cochlea, vestibule, or semicircular canals. The internal auditory canal is normal in caliber and contour. The vestibular aqueduct is normal in size. No abnormality of the facial nerve canal or internal carotid artery canal. Thinning of the jugular bulb. LEFT TEMPORAL BONE: The auricle and adjacent soft tissues are unremarkable. The external auditory canal is patent without stenosis or obstruction. The tympanic membrane is normal. No abnormal density in the middle ear cavity including the sinus tympani and facial recess. The ossicular chain is intact. The scutum is normal in morphology and Prussak`s space is clear. The mastoid air cells are clear. Focal areas of thinning/dehiscence involving the tegmen tympani and tegmen mastoideum. The otic capsule is normal in density. No abnormality of the cochlea, vestibule, or semicircular canals. The internal auditory canal is normal in caliber and contour. The vestibular aqueduct is normal in size. No abnormality of the facial nerve canal or internal carotid artery canal. Thinning/possible dehiscence of the jugular bulb. ADDITIONAL FINDINGS: The visualized intracranial structures are within normal limits. No acute orbital pathology. No significant mucosal thickening/secretions in the visualized paranasal sinuses. No acute or aggressive osseous lesions. Degenerative changes of the right temporomandibular joint including joint space loss with mild remodeling and subchondral cystic changes in the mandibular condyle. Mild degenerative changes of the left temporomandibular joint. IMPRESSION: 1. Focal areas of thinning/dehiscence involving the tegmen tympani and tegmen mastoideum bilaterally. 2. Thinning/possible dehiscence of the left jugular bulb and thinning of the right jugular bulb. 3. Mild degenerative changes of the temporomandibular joints, right greater than left. Please note that all CT scans at this facility use dose modulation, iterative reconstruction, and/or weight-based dosing when appropriate to reduce radiation dose to as low as reasonably achievable. Dictated by Ben Pruitt MD @ 07/13/2025 1:22:36 PM (Electronically Signed)
== END 2025-07-12 11:19 | disposition home or self-care (01) ==
LOC: CT 11:19
PROVIDERS: PCP Nurse Practitioner Family; Visit Provider Dentist
DX: M26.633 Articular disc disorder of bilateral temporomandibular joint (principal)
CPT/HCPCS: 70480

== ENCOUNTER 2025-07-12 11:24 | Outpatient (CLI) | payer OTHER, SELFPAY ==
--- NOTE | 2025-07-12 15:30 | CRLHL7_ITS ---
For Patients: As a result of the Century Cures Act, medical imaging exams and procedure reports are released immediately into your electronic medical record. You may view this report before your referring provider. If you have questions, please contact your health care provider. INDICATION: Pituitary microadenoma. Comparison 07/23/2023. TECHNIQUE: Multiplanar T1, T2, FLAIR and diffusion-weighted imaging. Post gadolinium T1 weighted sequences. Additional pre and post and sequences of the sella. Gadolinium 15 cc IV. FINDINGS: Normal brain parenchymal morphology and signal intensity. No intracranial hemorrhage. No abnormal ventricular dilatation. Intracranial vascular flow voids are preserved. No mass effect. No midline shift. No restricted diffusion to suggest acute ischemia. No abnormal enhancement or enhancing lesions within the brain parenchyma. Dedicated sequences of the sella demonstrates normal morphology of the pituitary gland. There is a hypo enhancing nodule within the right inferior aspect of the pituitary gland measures approximately 5 x 4 mm (series 14, image 11) which has decreased in size from the previous exam of 2022. Finding again likely represents a microadenoma. No suprasellar mass. Normal cavernous sinuses bilaterally. Normal infundibulum at midline. Bilateral orbits are unremarkable. Visualized paranasal sinuses and mastoid air cells are unremarkable. IMPRESSION: 1. Dedicated sequences of the sella demonstrates interval decrease in size of a hypoenhancing nodule within the right inferior aspect of the pituitary gland. Finding again likely represents a microadenoma. No suprasellar mass. Normal cavernous sinuses. 2. No acute intracranial abnormality 3. Normal brain parenchymal morphology and signal intensity 4. No abnormal enhancement or enhancing lesions within the brain parenchyma Dictated by Deandre Casas MD @ 07/12/2025 3:46:30 PM (Electronically Signed)
== END 2025-07-12 11:25 | disposition home or self-care (01) ==
LOC: MRI 11:24
PROVIDERS: PCP Nurse Practitioner Family; Visit Provider Internal Medicine Endocrinology, Diabetes & Metabolism
DX: D35.2 Benign neoplasm of pituitary gland (principal); E23.6 Other disorders of pituitary gland
CPT/HCPCS: 70553; A9575